=== PATIENT | female | born 2000 | race African-American/Black ===

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

== ENCOUNTER 2023-12-15 16:32 | Inpatient (IN) | payer OTHER ==
[2023-12-15] VITALS (21 sets, daily range): BP systolic 90–129; BP diastolic 65–98; PULSE 62–117; TEMP 98–99
[~2023-12-15] VITALS: Ht 165.1 cm; Wt 77.3 kg
--- NOTE | 2023-12-15 16:30 | NUR ---
PT AND PT SPOUSE AMBULATORY TO UNIT, PT CHANGED INTO GOWN AND ORIENTATED TO ROOM. PT REPORTS FEELING "CONTRACTIONS EVERY 6 MINUTES, LASTING AROUND 1 MINUTE EACH, AND IT HAS BEEN HAPPENING FOR THE LAST 2 HOURS." PT REPORTS NO LEAKING OF FLUID, NO VAGINAL BLEEDING, POSITIVE MOVEMENT, AND TIGHTNESS AND BREATHING THROUGH CONTRACTIONS. FHR BASELINE 140'S, NO ACCELS, EARLY DECELS RECURRENT, PT KEVIN EVERY 4-6 MINUTES LASTING 100-120 SECONDS WITH FIRM PALPATION. PT ORIENTED TO PLAN OF CARE, NOTIFIED, ORDERS FOR LABOR CHECK PROTOCOL INITIATED.
[~2023-12-15 16:32] MED LIST: PREDNISONE20 MG PO; PROAIR HFA0.09 MG/AC IH; TUMS500 MG PO; ZOFRAN 4MG T4 MG/TAB PO
[2023-12-15] MEDS ORDERED: LR 1,000 ML IV PRN ×2 (17:30→21:45)
[2023-12-15] MEDS ORDERED: LR 1,000 ML IV SCH (18:45)
[2023-12-15] MEDS ORDERED: LR & Oxytocin 500 ML IV SCH (18:45)
[2023-12-15] MEDS ORDERED: Phenylephrine 10 MG/ML VIAL ONE (19:01)
[2023-12-15] MEDS ORDERED: Ketorolac 60 MG/2 ML VIAL IM ONE (19:01)
[2023-12-15] MEDS ORDERED: NS 20 ML IV ONE (19:05)
[2023-12-15] MEDS ORDERED: Ondansetron 4 MG/2 ML VIAL ONE (19:05)
[2023-12-15] MEDS ORDERED: Oxytocin 10 UNITS/ML VIAL ONE ×2 (19:05→19:54)
--- NOTE | 2023-12-15 19:11 | NUR ---
1819- REPORT RECEIVED FROM Holly GAN RN. IN ROOM TO ASSIST WITH POSITION CHANGED. FHTs WITH MINIMAL TO ABSENT VARIABILITY, RECURRENT LATE DECELS NOTED. PT REPOSITIONED TO RIGHT WEDGE. PT OFF MONITOR TO USE THE BATHROOM. 1823- DR. KUHN IN ROOM TO DISCUSS CONCERNS REGARDING FHTs AND TO PERFORM BEDSIDE US. 1824- MONITORING RESUMED. 2nd LITER OF LR BOLUSING. DR. KUHN EDUCATES PT AND SPOUSE ON HIS CONCERNS AND STATES THAT HE WOULD RECOMMEND A C/S. PT AND SPOUSE ASK TO WAIT UNTIL PATERNAL GRANDMOTHER ARRIVES TO DISCUSS OPTIONS WITH HER. DR. KUHN STATES THAT AT THIS TIME HE IS OK TO WAIT BUT IF THERE ARE CONTINUED NRFHT HE WILL ADVICE TO GO TO SECTION. PT AND SPOUSE VERBALIZE UNDERSTANDING. BEDSIDE US COMPLETED BY CASPER REYES. DR. KUHN OUT OF ROOM FOLLOWING US. 1845- CONTINUED NRFHTs NOTED. DR. KUHN ADVISES PT AND SPOUSE THAT HE RECOMMENDS C/S AT THIS TIME, PT AND SPOUSE VERBALIZE UNDERSTANDING AGREED TO C/S. 1851- Julio Cesar BROWN CRNA IN ROOM TO DISCUSS SPINAL, CONSENT SIGNED. PATERNAL GRANDMOTHER IN ROOM AND UPDATED ON PLAN OF CARE. 1899- PT UP TO BATHROOM. MONS PUBIS CLIPPED AND ABDOMINAL SCRUB PERFORMED. 1904- MONITORING RESUMED. PATERNAL GRANDMOTHER REQUESTS TO PRAY WITH PT PRIOR TO GOING TO C/S. 1910- PT OFF MONITOR FOR PRIMARY C/S FOR NRFHTs. PT AMBULATORY TO OR.
[2023-12-15 19:21] LABS: BASO % 0.5 % (0.0-2.0); EOS # 0.1 K/mm3 (0.0-0.7); EOS % 1.4 % (0.0-4.0); GRAN # 5.4 K/mm3 (1.4-6.5); GRAN % 71.1 % (42.2-75.2); HEMATOCRIT 29.2 % (37.0-47.0); HEMOGLOBIN 8.3 g/dl (12.5-16.0); LYMPH # 1.3 K/mm3 (1.2-3.4); LYMPH % 16.9 % (20.0-51.0); MEAN CELL VOLUME 83 fl (80.0-100.0); MEAN CORPUSCULAR HEMOGLOBIN 24 pg (27-31); MEAN CORPUSCULAR HGB CONC 28 g/dl (33.0-37.0); MEAN PLATELET VOLUME 11.4 fl (7.4-10.4); MONO # 0.7 K/mm3 (0.1-0.6); MONO % 8.9 % (1.7-9.3); PLATELET COUNT 261 K/mm3 (130-400); RED BLOOD COUNT 3.53 M/mm3 (4.10-5.30); REDCELL DISTRIBUTION WIDTH-CV 17.2 % (11.5-14.5)
[2023-12-15] MEDS ORDERED: Tranexamic Acid 1,000 MG/10 ML VIAL ONE (19:33)
[2023-12-15] MEDS ORDERED: Meperidine 50 MG/ML 1 ML VIAL ONE (19:34)
[2023-12-15] MEDS ORDERED: LR 1,000 ML IV ONE (19:54)
[2023-12-15] MEDS ORDERED: droPERidol 2.5 MG/ML 2 ML VIAL ONE (20:03)
[2023-12-15] MEDS ORDERED: Loratadine 10 MG TAB PO PRN (20:15)
[2023-12-15] MEDS ORDERED: Magnes Hydrox (MOM) 80 MG/ML 30 ML CUP PO PRN (20:15)
[2023-12-15] MEDS ORDERED: traZODone 50 MG TAB PO PRN (21:00)
[2023-12-15] MEDS ORDERED: oxyCODONE 5 MG TAB PO PRN (21:45)
[2023-12-15] MEDS ORDERED: Albuterol 0.021% Neb Soln 0.63 MG/3 ML UD IH PRN (21:45)
[2023-12-15] MEDS ORDERED: Morphine 4 MG/ML VIAL IV PRN (21:45)
[2023-12-15] MEDS ORDERED: Naloxone 0.4 MG/ML VIAL IV PRN (21:45)
[2023-12-15] MEDS ORDERED: Measles/Mumps/Rubella Virus Vaccine Live w Diluent 0.5 ML VIAL SQ SCH (21:45)
[2023-12-15] MEDS ORDERED: Acetaminophen 500 MG TAB PO SCH (21:45)
[2023-12-15] MEDS ORDERED: Ondansetron 4 MG/2 ML VIAL IV PRN (21:45)
[2023-12-16] VITALS (10 sets, daily range): BP systolic 111–139; BP diastolic 67–84; PULSE 77–116; TEMP 97.6–98.6
[2023-12-16] MEDS ORDERED: Ibuprofen 600 MG TAB PO SCH (02:00)
[2023-12-16 05:21] LABS: HEMATOCRIT 24.5 % (37.0-47.0); HEMOGLOBIN 7.1 g/dl (12.5-16.0)
[2023-12-16] MEDS ORDERED: Sennosides/Docusate 8.6-50 MG TAB PO SCH (08:00)
[2023-12-16] MEDS ORDERED: Ferrous Sulfate 325 MG TAB PO SCH (08:00)
[2023-12-16] MEDS ORDERED: Prenatal Vitamins/Iron/FA TAB PO SCH (09:00)
[2023-12-16] MEDS ORDERED: diphenhydrAMINE 25 MG CAP PO ONE (14:45)
--- NOTE | 2023-12-16 16:45 | NUR ---
PT REPORTS "FEELING WEIRD AND THE ROOM IS MOVING SLOWLY", DIAPHORETIC, VITAL SIGNS STABLE. FUNDUS FIRM AND LOCHIA SCANT. BLOOD SUGAR 79. RECEIVED BENADRYL A FEW HOURS AGO FOR ITCHING PER MAYKEL STEVENSON, NO RECENT NARCOTIC ADMINISTRATION. PT STATES SHE DOES NOT FEEL ANXIOUS. SEE PHYSICIAN NOTIFICATION. PO JUICE AND SNACKS ADMINISTERED AT THIS TIME PER ORDER TO AIDE IN BLOOD SUGAR RECOVERY. WILL CONTINUE TO MONITOR PER .
--- NOTE | 2023-12-16 17:56 | NUR ---
PT ASLEEP, EASILY AROUSEABLE. STATES SHE IS "FEELING MUCH BETTER."
[2023-12-17 08:00] VITALS: BP 120/73; PULSE 73; TEMP 98.7
[2023-12-17 16:42] VITALS: BP 113/68; PULSE 98
[2023-12-17 20:00] VITALS: BP 115/70; PULSE 79; TEMP 97.9
[2023-12-18] MEDS ORDERED: MOTRIN 600600 MG/TAB PO (07:18)
[2023-12-18 09:10] VITALS: BP 127/78; PULSE 80; TEMP 98
--- NOTE | 2023-12-18 12:33 | NUR ---
1141 pt given both written and verbal discharge instructions. pt encouraged to keep all follow up appointments and informed she will need to call office to make appointments. pt verbalized understanding and has no questions at this time.
== END 2023-12-18 11:53 | disposition home or self-care (01) | DRG 788 ==
LOC: LDRO 16:32 → LDR 18:40 → OB 18:40
PROVIDERS: Obstetrics & Gynecology; ADMIT Obstetrics & Gynecology
PROC: 10D00Z1 Extraction of Products of Conception, Low, Open Approach (ICD-10-PCS; principal; 2023-12-15)
DX: O99.62 Diseases of the digestive system complicating childbirth (principal); Z37.0 Single live birth; O76 Abnormality in fetal heart rate and rhythm complicating labor and delivery; K21.9 Gastro-esophageal reflux disease without esophagitis; O99.52 Diseases of the respiratory system complicating childbirth; J45.909 Unspecified asthma, uncomplicated; Z3A.39 39 weeks gestation of pregnancy
CPT/HCPCS: J0690; J1790; J1885; J2175; J2371; J2405; J2590; J7120